=== PATIENT | female | born 2000 | race Two or more races ===

== ENCOUNTER → 2023-02-10 | Outpatient (REF) | payer OTHER ==
[2023-02-10 17:52] LABS: URIC ACID 3.7 MG/DL (3.1-7.8)
[2023-02-10 17:54] LABS: CREATININE,RANDOM URINE 31.4 MG/DL; LDH LACTATE DEHYDROGENASE 151 U/L (120-246)
[2023-02-10 17:55] LABS: ALT/SGPT 13 U/L (7.0-40); AST/SGOT < 8 U/L (<34); BILIRUBIN,TOTAL 0.2 MG/DL (0.3-1.2); CREATININE FOR GFR 0.46 MG/DL (0.55-1.30); GLOMERULAR FILTRATION RATE > 60.0 (>60)
[2023-02-10 18:09] LABS: TOTAL PROTEIN,RANDOM URINE < 6.0 MG/DL (0.0-14.0)
== END ==
LOC: M LABDRAWP 16:48
PROVIDERS: ATTEND Advanced Practice Midwife
DX: Z34.92 Encounter for supervision of normal pregnancy, unspecified, second trimester (principal)
CPT/HCPCS: 36415; 82247; 82565; 82570; 83615; 84156; 84450; 84460; 84550; 87086; G0463

== ENCOUNTER → 2023-02-25 | Outpatient (CLI) | payer OTHER | LOC: M WHC 13:31 | PROVIDERS: ATTEND Advanced Practice Midwife | DX: Z34.92 Encounter for supervision of normal pregnancy, unspecified, second trimester (principal) ==

== ENCOUNTER → 2023-03-13 | Outpatient (REF) | payer OTHER ==
[2023-03-13 21:23] LABS: GC DNA AMPLIFICATION NEGATIVE (NEGATIVE)
== END ==
LOC: M SFHCWAGY 17:27
PROVIDERS: ATTEND Obstetrics & Gynecology
DX: Z34.82 Encounter for supervision of other normal pregnancy, second trimester (principal)

== ENCOUNTER → 2023-04-13 | Outpatient (CLI) | payer OTHER ==
[2023-04-13 16:06] LABS: HEMATOCRIT 31.3 % (36.0-47.0); HEMOGLOBIN 10.8 g/dl (12.0-15.5); MEAN CORPUSCULAR HEMOGLOBIN 31.8 pg (27.0-33.0); MEAN CORPUSCULAR HGB CONC 34.5 g/dl (32.0-36.5); MEAN CORPUSCULAR VOLUME 92.1 fl (80.0-96.0); PLATELET COUNT, AUTOMATED 328 10^3/uL (150-450); WHITE BLOOD COUNT 12.3 10^3/uL (4.0-10.0)
== END ==
LOC: M PLALAB 13:29
PROVIDERS: ATTEND Obstetrics & Gynecology
DX: Z36.89 Encounter for other specified antenatal screening (principal); Z3A.22 22 weeks gestation of pregnancy

== ENCOUNTER → 2023-05-27 | Outpatient (REF) | payer OTHER | LOC: M SFHCWAGY 10:06 | PROVIDERS: ATTEND Obstetrics & Gynecology | DX: Z34.93 Encounter for supervision of normal pregnancy, unspecified, third trimester (principal) ==

== ENCOUNTER → 2023-06-24 | Outpatient (REF) | payer OTHER | LOC: M PLALAB 15:24 | PROVIDERS: ATTEND Obstetrics & Gynecology | DX: Z36.89 Encounter for other specified antenatal screening (principal); Z3A.36 36 weeks gestation of pregnancy ==

== ENCOUNTER 2023-07-14 11:39 | Inpatient (IN) | payer OTHER ==
[~2023-07-14] VITALS: Ht 157.5 cm; Wt 92.6 kg
[2023-07-14] VITALS (10 sets, daily range): BP systolic 108–130; BP diastolic 58–79
[2023-07-14] MEDS ORDERED: PRENTAB9 PO (12:33)
[2023-07-14 12:40] LABS: HEMOGLOBIN 10.2 g/dl (12.0-15.5); MEAN CORPUSCULAR HEMOGLOBIN 27.1 pg (27.0-33.0); MEAN CORPUSCULAR HGB CONC 32.9 g/dl (32.0-36.5); MEAN CORPUSCULAR VOLUME 82.2 fl (80.0-96.0); PLATELET COUNT, AUTOMATED 337 10^3/uL (150-450); RED BLOOD COUNT 3.77 10^6/uL (4.00-5.40); WHITE BLOOD COUNT 10.1 10^3/uL (4.0-10.0)
[2023-07-14] MEDS ORDERED: LIDOCAINE 1% MDV 20ML VIAL INFIL PRN (13:45)
[2023-07-14] MEDS ORDERED: METHYLERGONOVINE MALEATE 0.2MG/ML 1ML VIAL IM PRN (13:45)
[2023-07-14] MEDS ORDERED: TRANEXAMIC ACID INJection 1,000 MG in NS 100 ML IV PRN (13:45)
[2023-07-14] MEDS ORDERED: OXYTOCIN DRIP 30 UNITS in IV 1 EA IV PRN (13:45)
[2023-07-14] MEDS ORDERED: HOME MED LIST COMPLETE! XX SCH (14:00)
[2023-07-14] MEDS: miSOPROStol 50MCG 1/2 TABLET PO SCH ×2 (14:17→18:30)
[2023-07-14] MEDS ORDERED: OXYTOCIN DRIP 30 UNITS in IV 1 EA IV SCH (22:40)
[2023-07-14] MEDS: LR 1,000 ML IV SCH (22:52)
[2023-07-15] VITALS (19 sets, daily range): BP systolic 107–130; BP diastolic 53–83; O2SAT 98
[2023-07-15] MEDS ORDERED: CALCIUM CARBONATE 500 MG CHEW U/D PO ONE (02:00)
[2023-07-15] MEDS: LR 1,000 ML IV SCH (02:49)
[2023-07-15] MEDS ORDERED: ePHEDrine SULFATE 25 MG/5 ML(5MG/ML) SYRINGE IVP PRN (04:10)
[2023-07-15] MEDS ORDERED: ONDANSETRON 4MG 2ML VIAL IV PRN (04:10)
[2023-07-15] MEDS ORDERED: diphenhydrAMINE 50MG/ML VIAL IV PRN (04:10)
[2023-07-15] MEDS ORDERED: EPIDURAL/PCA KEYS XX PRN (04:10)
[2023-07-15] MEDS ORDERED: NALOXONE INJ 0.4MG/1ML VIAL IV PRN (04:10)
[2023-07-15] MEDS ORDERED: LR 500 ML IV PRN (04:10)
[2023-07-15] MEDS ORDERED: FENTANYL/ROPIVACAINE/NACL BAG 100 ML EPIDURAL SCH (04:10)
[2023-07-15] MEDS ORDERED: METHYLERGONOVINE MALEATE 0.2 MG TAB PO PRN (05:50)
[2023-07-15] MEDS ORDERED: DIBUCAINE 1% OINTMENT 30GM TOP PRN (05:50)
[2023-07-15] MEDS ORDERED: MOM 30ML SUSPENSION UDC PO PRN (05:50)
[2023-07-15] MEDS ORDERED: DOCUSATE SODIUM 100MG CAPSULE PO PRN (05:50)
[2023-07-15] MEDS ORDERED: ANUSOL HC CREAM 30GM TOP PRN (05:50)
[2023-07-15] MEDS ORDERED: RHOGAM 300MCG (1500IU) INJ IM SCH (05:50)
[2023-07-15] MEDS ORDERED: OXYTOCIN DRIP 30 UNITS in IV 1 EA IV SCH (05:50)
[2023-07-15] MEDS ORDERED: IBUPROFEN 600MG TAB PO PRN (05:50)
[2023-07-15] MEDS ORDERED: ACETAMINOPHEN TAB 650MG DOSE (2X325MG) PO PRN (05:50)
[2023-07-15] MEDS: PRENATAL VITAMINS CHEWABLE TABLET PO SCH (08:58)
[2023-07-15] MEDS: ACETAMINOPHEN 500 MG TAB PO PRN ×2 (12:07→20:24)
[2023-07-15] MEDS: IBUPROFEN 800 MG TAB PO PRN (14:11)
[2023-07-16] MEDS: IBUPROFEN 800 MG TAB PO PRN (00:34)
[2023-07-16] MEDS ORDERED: CALCIUM CARBONATE 500 MG CHEW U/D PO ONE (03:00)
[2023-07-16 06:00] VITALS: BP 122/74; O2SAT 99
[2023-07-16] MEDS: PRENATAL VITAMINS CHEWABLE TABLET PO SCH (07:59)
[2023-07-16] MEDS ORDERED: COLA100C5 PO (11:48)
[2023-07-16] MEDS ORDERED: ACET-683 PO (11:48)
[2023-07-16] MEDS ORDERED: IBUP-1022 PO (11:48)
[2023-07-17] MEDS ORDERED: MEASLES,MUMPS,RUBELLA VACCINE INJ (MMR-II) SC.IMMUN ONE (09:00)
== END 2023-07-16 13:45 | disposition home or self-care (01) | DRG 807 ==
LOC: M LDI 11:39 → M OBS 07-15 14:46
PROVIDERS: ADMIT Obstetrics & Gynecology; ATTEND Obstetrics & Gynecology
PROC: 3E033VJ Introduction of Other Hormone into Peripheral Vein, Percutaneous Approach (ICD-10-PCS; 2023-07-14)
PROC: 10E0XZZ Delivery of Products of Conception, External Approach (ICD-10-PCS; principal; 2023-07-15)
DX: O70.0 First degree perineal laceration during delivery (principal); Z37.0 Single live birth; Z3A.39 39 weeks gestation of pregnancy

== ENCOUNTER → 2024-02-19 | Outpatient (CLI) | payer OTHER ==
[~2024-02-19] MED LIST: ACET-683 PO; COLA100C5 PO; IBUP-1022 PO; PRENTAB9 PO
[2024-02-19 18:07] LABS: HEMATOCRIT 43.6 % (36.0-47.0); HEMOGLOBIN 13.9 g/dl (12.0-15.5); MEAN CORPUSCULAR HGB CONC 31.9 g/dl (32.0-36.5); MEAN CORPUSCULAR VOLUME 84.7 fl (80.0-96.0); PLATELET COUNT, AUTOMATED 452 10^3/uL (150-450); RED BLOOD COUNT 5.15 10^6/uL (4.00-5.40); WHITE BLOOD COUNT 9.5 10^3/uL (4.0-10.0)
[2024-02-19 18:37] LABS: ALBUMIN 4.3 G/DL (3.2-5.2); ALKALINE PHOSPHATASE 123 U/L (46-116); ALT/SGPT 37 U/L (7.0-40); AST/SGOT 20 U/L (<34); BILIRUBIN,TOTAL 0.3 MG/DL (0.3-1.2); BLOOD UREA NITROGEN 7 MG/DL (9-23); CALCIUM LEVEL 9.8 MG/DL (8.5-10.1); CARBON DIOXIDE LEVEL 29 MMOL/L (20-31); CHLORIDE LEVEL 104 MMOL/L (98-107); CHOLESTEROL LEVEL 150 MG/DL (<200); CHOLESTEROL RISK RATIO 3.23 (<5); CREATININE FOR GFR 0.67 MG/DL (0.55-1.30); GLOMERULAR FILTRATION RATE > 60.0 (>60); GLUCOSE, FASTING 85 MG/DL (60-100); HDL CHOLESTEROL 46.3 MG/DL (>40); IRON (FE) 43 UG/DL (50-170); LDL CHOLESTEROL 90.5 MG/DL (<100); NON-HDL-C 103.7 MG/DL; POTASSIUM SERUM 4.1 MMOL/L (3.5-5.1); SODIUM LEVEL 138 MMOL/L (136-145); TOTAL PROTEIN 7.9 G/DL (5.7-8.2); TRIGLYCERIDES LEVEL 66 MG/DL (<150)
[2024-02-19 18:38] LABS: FREE T4 1.02 NG/DL (0.89-1.76); THYROID STIMULATING HORMONE 1.489 uIU/ML (0.55-4.78); VITAMIN B12 LEVEL 821 PG/ML (211-911)
[2024-02-19 18:43] LABS: HEMOGLOBIN A1c 5.3 % (4.0-6.0)
== END ==
LOC: M WUC 13:08
PROVIDERS: ATTEND Physician Assistant
DX: R20.2 Paresthesia of skin (principal); M54.50 Low back pain, unspecified